=== PATIENT | male | born 1950 | race Caucasian/White ===

== ENCOUNTER 2021-04-28 14:23 | Outpatient (REF) | payer MEDICARE, SELFPAY ==
--- NOTE | ~2021-04-28 | US_ITS ---
EXAMINATION: US SOFT TISSUE HEAD/NECK CLINICAL INFORMATION: Dentofacial anomaly, unspecified. COMPARISON: None TECHNIQUE: Linear transducer grayscale and color Doppler examination of the right cheek bone just under eye. FINDINGS: Imaging to the right cheek bone destruction in the eyes reveals a cystic lesion with internal echoes, nonvascular measuring 0.80 x 0.4 x 0.8 cm. No additional lesions seen. US/US soft tiss head and/or neck IMPRESSION: Cystic appearing lesion deep within the soft tissues under the right cheek likely inclusion or sebaceous cyst
== END 2021-04-28 14:24 | disposition home or self-care (01) ==
LOC: HO.HMGCX 14:23
PROVIDERS: PCP Internal Medicine; Visit Provider Nurse Practitioner Family
DX: M26.9 Dentofacial anomaly, unspecified (principal); R22.0 Localized swelling, mass and lump, head
CPT/HCPCS: 76536

== ENCOUNTER 2022-04-27 06:00 | Outpatient (REF) | payer MEDICARE, SELFPAY ==
[2022-04-27 11:29] LABS: MANUAL DIFF FLAG NO
[2022-04-27 11:47] LABS: Basophils Percent Auto 0.6 % (0-2); Eosinophils Absolute Auto 0.2 X10*3/uL (0.0-0.4); Hematocrit 42.7 % (42.0-52.0); Hemoglobin 14.1 g/dl (14.0-18.0); Imm Gran Abs Auto 0.03 X10*3/uL (0.00-0.03); Imm Gran Pct Auto 0.6 % (0.0-0.4); Lymphocytes Absolute Auto 1.7 X10*3/uL (1.2-4.9); Lymphocytes Percent Auto 33.1 % (20-40); Mean Corpuscular Hemoglobin 29.5 pg (27.0-33.0); Mean Corpuscular Volume 89.3 fL (80.0-98.0); Mean Platelet Volume 11.9 fL (9.4-12.4); Monocytes Absolute Auto 0.5 X10*3/uL (0.1-1.2); Monocytes Percent Auto 10.4 % (2-11); Neutrophils Absolute Auto 2.6 x10*3/uL (2.0-8.3); Neutrophils Percent Auto 51.3 % (45-73); Platelet Count 126 X10*3/uL (160-400); Red Blood Count 4.78 X10*6/uL (4.60-5.80); Red Cell Distribution Width 12.8 % (11.0-16.0)
[2022-04-27 12:19] LABS: Thyroid Stimulating Hormone 1.67 uIU/mL (0.32-4.0); Vitamin D 25-OH Total 15.8 ng/mL (>30)
[2022-04-27 12:56] LABS: Alanine Aminotransferase 39 U/L (0-40); Albumin Level 3.9 g/dL (3.5-5.0); Alkaline Phosphatase 59 U/L (39-117); Anion Gap 9 (12-20); Aspartate Amino Transferase 22 U/L (5-37); Bilirubin Total 1.1 mg/dL (0.0-1.0); Blood Urea Nitrogen 16 mg/dL (9-16); Calcium 8.4 mg/dL (8.4-10.2); Carbon Dioxide 25 mmol/L (22-29); Chloride 109 mmol/L (96-108); Cholesterol 114 mg/dL; Estimated Glomerular Filt Rate > 60; Glucose Fasting 93 mg/dL (60-99); HDL Cholesterol 39 mg/dL; LDL Cholesterol Calculated 62 mg/dl; Potassium 4.2 mmol/L (3.3-5.1); Sodium 139 mmol/L (135-145); Total Protein 6.3 g/dL (6.5-8.0); Triglycerides 69 mg/dL
== END 2022-04-27 06:01 | disposition home or self-care (01) ==
LOC: HO.HMGCLDS 06:00
PROVIDERS: Visit Provider Internal Medicine
DX: I10 Essential (primary) hypertension (principal); I27.82 Chronic pulmonary embolism; D68.51 Activated protein C resistance; E78.00 Pure hypercholesterolemia, unspecified
CPT/HCPCS: 36415; 80053; 80061; 82306; 84443; 85025

== ENCOUNTER → 2022-07-16 14:43 | Outpatient (REF) | payer MEDICARE, SELFPAY ==
--- NOTE | 2022-07-16 14:46 | CA_ITS ---
Transthoracic Echocardiogram Patient (Last, First, Middle): Aurelio Sung, Gender: Male Date of : 1950 Age: 72 Procedure Date: 07/16/2022 Procedure Type: Transthoracic Echocardiogram Location: OP Height: 175.26 cm Weight: 92.99 kg BSA: 2.09 m2 Heart Rate: 73 bpm BP: 121 / 72 mmHg Brief Writer: SB Referring MD: Houston Osborne DO Symptoms: ESSEN. HTN Study Quality: Adequate ECG Rhythm: Sinus Conclusions: - Normal left ventricular size, thickness, systolic function, and wall motion. The visually estimated ejection fraction is between 60-65%. - Mildly increased right ventricular cavity size. There is normal right ventricular systolic function. - There is mild dilatation of the sinuses of Valsalva measuring 4.30 cm and mild dilatation of the ascending aorta measuring 4.10 cm. Findings Left Ventricle Normal left ventricular size, thickness, systolic function, and wall motion. The visually estimated ejection fraction is between 60-65%. There is no evidence of regional wall motion abnormalities. Abnormal diastolic function is noted. Spectral Doppler is indicative of a irreversible restrictive filling pattern. E/E prime ratio is between 8 and 15 consistent with indeterminate filling pressures. Low global longitudinal strain. Right Ventricle Mildly increased right ventricular cavity size. There is normal right ventricular systolic function. Atria The left atrium is normal in size. The right atrium is normal in size. Aortic Valve Normal aortic valve structure and function. There is no aortic valve stenosis. There is trace (trivial) aortic valve regurgitation. Mitral Valve Normal mitral valve structure and function. There is trace mitral valve regurgitation. There is no mitral valve stenosis. Pulmonic Valve Normal pulmonic valve structure and function. There is no pulmonic valve regurgitation. Tricuspid Valve Normal tricuspid valve structure and function. There is mild tricuspid valve regurgitation. Normal right atrial pressure. There is no evidence of pulmonary hypertension. Great Vessels There is mild dilatation of the sinuses of Valsalva measuring 4.30 cm and mild dilatation of the ascending aorta measuring 4.10 cm. The visualized portions of the pulmonary artery and branches are normal. Venous The inferior vena cava is normal in size and collapses greater than 50% with inspiration. Pericardium/Pleural There is no evidence of pericardial effusion. Measurements 2D Linear Measurements IVSd: 1.01 0.6-0.9/0.6-1.0 cm LVIDd: 4.55 3.9-5.3/4.2-5.9 cm LVIDd Index: 2.18 2.4-3.2/2.2-3.1 cm/m2 LVIDs: 3.17 2.0-3.6 cm LVPWd: 0.91 0.7-1.1 cm LA Diam: 3.70 2.7-3.8/3.0-4.0 cm LAIDs Index: 1.77 1.5-2.3 cm/m2 LV Mass: 183.58 67-162/88-224 g LV Mass Index: 87.84 43-95/49-115 g/m2 LVOT Diam: 2.40 3.0+(-)1.3 cm 2D Systolic Function EF 4C: 57.60 >55% EF 2C: 55.40 >55% EF BiP: 56.70 >55% Mitral Valve MV Pk E: 0.64 MV PK A: 0.65 MV Decel Time: 257.00 E/A: 1.00 E'Lateral: 5.87 E'Medial: 5.22 E/E' Med: 12.20 E/E' Lat: 10.90 PHT: 75.00 MVA PHT: 2.93 Decel [place]: 2.48 Aortic Valve AoV Pk Madan: 1.41 AoV Mn Madan: 1.07 AoV VTI: 0.28 AoV Pk Grad: 8.00 Aov Mn Grad: 5.00 CLARA Cont.VTI: 4.08 LVOT LVOT Pk Madan: 1.29 LVOT Mn Madan: 0.94 LVOT VTI: 0.25 LVOT Pk Grad: 7.00 LVOT Mn Grad: 4.00 LVOT Diam: 2.40 LVOT Area: 4.52 Diastolic Function MV Pk E: 0.64 MV Pk A: 0.65 E/A: 1.00 E'Medial: 5.22 E/E' Med: 12.20 E' Laterial: 5.87 E/E' Lat: 10.90 Right Ventricle TAPSE (mm): 16.30 TVS' Madan: 13.70 Tricuspid Valve TR Pk Madan: 2.39 TR Pk Grad: 23.00 RA Press: 3.00 RVSP: 26.00 Great Vessels Aorta Sinus of Valsalva: 4.30 2.0-3.5 cm Ao Asc: 4.10 2.1-3.4 cm Pulmonary Veins Pulm Vein S/D 2.30 Pulmonary Valve PV Pk Madan: 1.06 Peak PV Grad: 4.00 Updated in Other Vendor System with Status of Final Kyree Walker MD electronically signed on 07/18/2022 9:16:44 PM with status of Final
== END ==
LOC: HO.CARD 14:43
PROVIDERS: PCP Internal Medicine; Visit Provider Internal Medicine
DX: I10 Essential (primary) hypertension (principal); D68.51 Activated protein C resistance; E66.09 Other obesity due to excess calories; E78.00 Pure hypercholesterolemia, unspecified
CPT/HCPCS: 93306

== ENCOUNTER 2023-07-04 06:11 | Outpatient (REF) | payer MEDICARE, SELFPAY ==
[2023-07-04 11:31] LABS: MANUAL DIFF FLAG NO
[2023-07-04 11:35] LABS: Basophils Absolute Auto 0.1 X10*3/uL (0.0-0.2); Basophils Percent Auto 0.8 % (0-2); Eosinophils Absolute Auto 0.2 X10*3/uL (0.0-0.4); Eosinophils Percent Auto 3.6 % (0-4); Hematocrit 42.8 % (42.0-52.0); Hemoglobin 14.4 g/dl (14.0-18.0); Imm Gran Abs Auto 0.02 X10*3/uL (0.00-0.03); Imm Gran Pct Auto 0.3 % (0.0-0.4); Lymphocytes Absolute Auto 1.9 X10*3/uL (1.2-4.9); Mean Corpuscular HGB Conc 33.6 g/dl (31.0-36.0); Mean Corpuscular Hemoglobin 30.4 pg (27.0-33.0); Mean Corpuscular Volume 90.3 fL (80.0-98.0); Mean Platelet Volume 12.1 fL (9.4-12.4); Monocytes Absolute Auto 0.7 X10*3/uL (0.1-1.2); Monocytes Percent Auto 10.6 % (2-11); Neutrophils Absolute Auto 3.5 x10*3/uL (2.0-8.3); Neutrophils Percent Auto 54.7 % (45-73); Platelet Count 124 X10*3/uL (160-400); Red Blood Count 4.74 X10*6/uL (4.60-5.80); Red Cell Distribution Width 12.3 % (11.0-16.0); White Blood Count 6.4 X10*3/uL (4.8-10.8)
[2023-07-04 12:10] LABS: Alanine Aminotransferase 28 U/L (0-40); Albumin Level 3.8 g/dL (3.5-5.0); Alkaline Phosphatase 60 U/L (39-117); Anion Gap 9 (12-20); Aspartate Amino Transferase 18 U/L (5-37); Bilirubin Total 1.2 mg/dL (0.0-1.0); Blood Urea Nitrogen 13 mg/dL (9-16); Calcium 8.9 mg/dL (8.4-10.2); Carbon Dioxide 27 mmol/L (22-29); Chloride 109 mmol/L (96-108); Cholesterol 97 mg/dL (<200); Estimated Glomerular Filt Rate > 60; Glucose Fasting 92 mg/dL (60-99); HDL Cholesterol 44 mg/dL (>40); LDL Cholesterol Calculated 46 mg/dL (<100); Potassium 4.2 mmol/L (3.3-5.1); Sodium 141 mmol/L (135-145); Total Protein 6.5 g/dL (6.5-8.0); Triglycerides 39 mg/dL (<150)
[2023-07-04 12:30] LABS: Thyroid Stimulating Hormone 1.95 uIU/mL (0.32-4.0); Vitamin D 25-OH Total 32.8 ng/mL (>30)
== END 2023-07-04 06:12 | disposition home or self-care (01) ==
LOC: HO.HMGCLDS 06:11
PROVIDERS: PCP Internal Medicine; Visit Provider Internal Medicine
DX: I10 Essential (primary) hypertension (principal); D68.51 Activated protein C resistance; E78.00 Pure hypercholesterolemia, unspecified; E55.9 Vitamin D deficiency, unspecified; E66.09 Other obesity due to excess calories
CPT/HCPCS: 36415; 80053; 80061; 82306; 84443; 85025

== ENCOUNTER 2023-10-18 08:08 | Outpatient (AMB) | payer MEDICARE, SELFPAY ==
--- NOTE | 2023-10-18 08:29 | MHC.OFFVIS ---
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 He states that for the last couple of years he has been feeling short of breath activity. Activities that are normally easy for him like raking leaves, activities in the long extra are harder. He is getting short of breath and fatigue as well. However, no clear-cut angina. He has brought under get a chest CT scan from 2012 that describes extensive left coronary artery calcification. He he has been on statins for many years. There is a history of factor 5 Leiden and he states that he has had DVT as well as PE in the past. Hence he is on long-term anticoagulation with warfarin. [facility] Medical History (Updated 10/18/23 @ 08:56 by Mundo Rick MD) Factor V Leiden Pulmonary embolism DVT (deep venous thrombosis) Atherosclerotic cardiovascular disease Surgical History (Updated 10/18/23 @ 08:38 by Susanna Zhou) Hx of cholecystectomy Family History (Updated 10/18/23 @ 08:38 by Susanna Zhou) Mother No problems noted. Father No problems noted. Social History (Updated 10/18/23 @ 08:38 by Susanna Zhou) Alcohol intake: current Alcohol intake frequency: holidays/special occasions only Patient Tobacco Use Status: Former Tobacco user Quit Date: 42 years ago Review of Systems Const Denies chills, Denies daytime sleepiness, Denies fatigue, Denies fever(s), Denies frequent falls, Denies night sweats, Denies snoring, Denies weakness, Denies weight gain and Denies weight loss Eyes Denies loss of vision ENT Denies dizziness and Denies hearing loss Card Denies chest pain, Denies chest pain with activity, Denies syncope, Denies rapid heart rate, Denies edema, Denies claudication, Denies leg edema, Denies lightheadedness, Denies palpitations, Denies dyspnea, Reports dyspnea on exertion and Denies orthopnea Resp Denies cough, Denies excessive phlegm production, Denies dyspnea, Reports dyspnea on exertion, Denies snoring and Denies wheezing GI Denies abdominal pain, Denies hematochezia, Denies change in bowel habits, Denies change in stool character, Denies heartburn, Denies nausea and Denies vomiting Denies hematuria, Denies dysuria and Denies urinary frequency Musc Denies arthralgias, Denies muscle weakness, Denies numbness and Denies tingling Skin/Breast Denies nail changes and Denies rash Neuro Denies Abnormal speech present, Denies dizziness, Denies syncope, Denies frequent falls, Denies loss of vision, Denies memory loss, Denies numbness, Denies tingling and Denies weakness Psych Denies depression and Denies memory loss Endo Denies fatigue and Denies palpitations Aller/Immun Denies wheezing Physical Exam Vital Signs: Last Vital Signs Pulse 73 10/18/23 08:30 BP 136/80 10/18/23 08:30 BMI result Body Mass Index 31.3 Const General: comfortable and no acute distress Orientation/consciousness: patient oriented x3 HEENT Other: Unremarkable Head: Yes normal to inspection Neck Neck: Yes normal visual inspection Chest Chest palpation & inspection: normal inspection of the chest Resp Auscultation: clear to auscultation bilaterally Cardio Palpation: normal PMI Heart sounds: S1 normal heart sound present, S2 normal heart sound present, no gallops, no murmurs and no rubs GI Palpation (GI): Soft to palpation Back/Spine/Pelvis Other: unremarkable Skin General skin exam: no rashes or lesions noted Neuro General: patient oriented x3 Speech: No Abnormal speech present Extrem General: Yes normal to inspection Psych Mental Status: mental status grossly normal Office Procedures EKG Details: EKG with sinus rhythm at 73/Min; right bundle-branch block pattern. 10000-[id number], Complete Assessment & Plan Assessment & Plan (1) Shortness of breath: Code(s): R06.02 - Shortness of breath (2) Atherosclerotic cardiovascular disease: Code(s): I25.10 - Atherosclerotic heart disease of [place] coronary artery without angina pectoris Plan Per chest CT scan from 2013-extensive left coronary artery calcification. With regard to shortness of breath, need assessment for obstructive CAD. We discussed about this today. Advised to cut back on physical activity for now. Will start with an echocardiogram and stress myocardial perfusion imaging study. Based on the findings, may need a diagnostic catheterization. We discussed about that as well. Patient understands. Follow-up after testing. All questions answered. Otherwise, recommend continuing statins based on the CT findings. Orders: Orders CA echo transthoracic complete Today I25.10 - Atherosclerotic heart disease of [place] coronary artery without angina pectoris, R06.02 - Shortness of breath NM cardiolite stress test Today R06.02 - Shortness of breath, R07.2 - Precordial pain CA stress test Today R06.02 - Shortness of breath, R07.2 - Precordial pain Coding Level of Care Code New Pt Level 4 (24935) Diagnoses Shortness of breath R06.02 Atherosclerotic cardiovascular disease I25.10 CPT Codes EKG - CPT: 30063-[id number], Complete ([id number])
[2023-10-18 08:30] VITALS: BP 136/80; PULSE 73; BMI 31.3
== END 2023-10-18 08:57 | disposition home or self-care (01) ==
PROVIDERS: PCP Internal Medicine; Visit Provider Internal Medicine
DX: R06.02 Shortness of breath (principal); I25.10 Atherosclerotic heart disease of native coronary artery without angina pectoris
CPT/HCPCS: 93010; 99204

== ENCOUNTER → 2023-10-18 08:08 | Outpatient (BNVA) | payer MEDICARE, SELFPAY | PROVIDERS: PCP Internal Medicine; Visit Provider Internal Medicine | DX: I25.10 Atherosclerotic heart disease of native coronary artery without angina pectoris (principal); R06.02 Shortness of breath | CPT/HCPCS: 93005; 99202 ==

== ENCOUNTER → 2023-12-06 07:44 | Outpatient (REF) | payer MEDICARE, SELFPAY ==
--- NOTE | ~2023-12-06 | NM_ITS ---
EXERCISE MYOCARDIAL PERFUSION STUDY INDICATION: Shortness of breath, assess for coronary disease, ischemia TECHNIQUE: The patient was brought in for an exercise perfusion study on 12/06/2023. Patient performed exercise as per Dg protocol and was injected 30 mCi of sestamibi once target heart rate was achieved. Images were obtained using the SPECT gamma camera interlaced with the gating device. Images were obtained in supine position. Resting perfusion study was performed on 12/07/2023. Patient was administered 30 mCi of sestamibi intravenously at rest. Images were then obtained in supine position. Images were processed with the software and compared side to side in short axis, horizontal long axis and vertical long axis views. Total DLP 104mGy-cm. FINDINGS: Raw images were reviewed. The stress perfusion study showed mildly diminished tracer uptake in the basal part of inferior wall. There is improvement with CT attenuation correction suggestive of diaphragmatic attenuation artifact. The gated study shows normal LV systolic function with calculated LVEF of 65%. LV cavity is normal in size. The gated study shows normal wall thickening and contraction of segments. Resting study shows no significant perfusion abnormality. Gating at rest reveals normal wall motion with ejection fraction at 63%. The findings are consistent with mild reversible basal inferior defect suspected to be from diaphragmatic attenuation artifact. NM/NM cardiolite stress test IMPRESSION: 1. Myocardial perfusion imaging study shows probably normal myocardial perfusion. 2. Gated LVEF is 65% during stress and 63% during rest. 3. Transient ischemic dilatation not present. EKG component of the test reported separately.
--- NOTE | 2023-12-06 07:46 | CA_ITS ---
Acquisition Time: 2023-12-06 08:55:42 Total Exercise Time: 00:05:30 Test Indications: Dyspnea CAD Medications: ATORVASTATIN LOSARTAN WARFARIN VIT D Protocol: YOVANNY Max HR: 129 BPM 88% of Pred: 146 BPM Max BP: 172/078 mmHG Max Work Load: 6.0 METS Exercise stress test exercise 5 min 30 sec of Yovanny protocol (stage 2 reduced speed of 2.1mph) 86%, without chest discomfort, with mild to moderate SOB, with isolated PVC, and atrial tach, with normotensive response to exercise, without EKG changes. Breathing returned to baseline Nuclear images pending. Test reviewed with Dr. Hitchcock Referred By: Mundo Rick Overread By: Laura Hernandez
--- NOTE | 2023-12-06 07:46 | CA_ITS ---
Transthoracic Echocardiogram Patient (Last, First, Middle): Aurelio Sung, Gender: Male Date of : 1950 Age: 73 Procedure Date: 12/06/2023 Procedure Type: Transthoracic Echocardiogram Location: OP Height: 175.26 cm Weight: 92.99 kg BSA: 2.09 m2 Heart Rate: bpm BP: 120 / 74 mmHg Therapy Technician: ALEXANDR Referring MD: Mundo Rick MD Pet Care Associate: Parker Hitchcock MD Symptoms: I25.10 - Atherosclerotic heart disease of [place] coronary artery without... Study Quality: Adequate ECG Rhythm: Sinus Conclusions: - 1. Normal LV ejection fraction 60-65% with grade 1 diastolic dysfunction 2. Mildly dilated left atrium 3. Trace to mild aortic regurgitation 4. Mildly dilated ascending aorta at 4.1 cm 5. No gross pericardial effusion Findings Left Ventricle Normal left ventricular size, thickness, and systolic function. The visually estimated ejection fraction is between 60-65%. Spectral Doppler is indicative of an impaired relaxation filling pattern. E/E prime ratio is <8, consistent with normal filling pressures. possible basal inferior hypokinesis. Right Ventricle Normal right ventricular cavity size and systolic function. Atria The left atrium is mildly dilated. There is no evidence of interatrial shunt. The right atrium is normal in size. Aortic Valve Normal aortic valve structure and function. There is no aortic valve stenosis. There is mild aortic valve regurgitation. Mitral Valve Normal mitral valve structure and function. There is trace mitral valve regurgitation. There is no mitral valve stenosis. Pulmonic Valve The pulmonic valve is likely normal. There is trace pulmonic valve regurgitation. Tricuspid Valve Normal tricuspid valve structure. Tricuspid regurgitation envelope is inadequate for calculation of right ventricular systolic pressure. Normal right atrial pressure. Great Vessels The pulmonary artery was not well visualized. There is mild dilatation of the ascending aorta measuring 4.10 cm. Venous The inferior vena cava is normal in size and collapses greater than 50% with inspiration. Pericardium/Pleural There is no evidence of pericardial effusion. Prior Study Comparison Changes noted compared to prior study dated: 07/16/2022. trace to mild aortic regurgitation is noted. Delayed reporting due to technical issues Measurements 2D Linear Measurements IVSd: 1.06 0.6-0.9/0.6-1.0 cm LVIDd: 4.93 3.9-5.3/4.2-5.9 cm LVIDd Index: 2.36 2.4-3.2/2.2-3.1 cm/m2 LVIDs: 3.28 2.0-3.6 cm LVPWd: 0.94 0.7-1.1 cm LA Diam: 3.50 2.7-3.8/3.0-4.0 cm LAIDs Index: 1.67 1.5-2.3 cm/m2 LV Mass: 221.06 67-162/88-224 g LV Mass Index: 105.77 43-95/49-115 g/m2 LVOT Diam: 2.40 3.0+(-)1.3 cm 2D Systolic Function EF 4C: 64.20 >55% EF 2C: 60.40 >55% EF BiP: 62.50 >55% Mitral Valve MV Pk E: 0.54 MV PK A: 0.63 MV Decel Time: 250.00 E/A: 0.90 E'Lateral: 8.27 E'Medial: 5.87 E/E' Med: 9.20 E/E' Lat: 6.50 PHT: 73.00 MVA PHT: 3.01 Decel [place]: 2.16 Aortic Valve AoV Pk Madan: 1.45 AoV Mn Madan: 1.03 AoV VTI: 0.37 AoV Pk Grad: 8.00 Aov Mn Grad: 5.00 CLARA Cont.VTI: 3.62 LVOT LVOT Pk Madan: 1.44 LVOT Mn Madan: 0.85 LVOT VTI: 0.29 LVOT Pk Grad: 8.00 LVOT Mn Grad: 4.00 LVOT Diam: 2.40 LVOT Area: 4.52 Diastolic Function MV Pk E: 0.54 MV Pk A: 0.63 E/A: 0.90 E'Medial: 5.87 E/E' Med: 9.20 E' Laterial: 8.27 E/E' Lat: 6.50 Right Ventricle TAPSE (mm): 28.70 TVS' Madan: 15.30 Tricuspid Valve TR Pk Madan: 2.57 TR Pk Grad: 26.00 Great Vessels Aorta Sinus of Valsalva: 4.33 2.0-3.5 cm Ao Asc: 4.10 2.1-3.4 cm Updated in Other Vendor System with Status of Final Parker Coretta MD electronically signed on 12/08/2023 3:00:10 PM with status of Final
== END ==
LOC: HO.CARD 07:44
PROVIDERS: PCP Internal Medicine; Visit Provider Internal Medicine
DX: R07.2 Precordial pain (principal); I25.10 Atherosclerotic heart disease of native coronary artery without angina pectoris; R06.02 Shortness of breath
CPT/HCPCS: 78452; 93017; 93306; A9500

== ENCOUNTER → 2023-12-06 09:02 | Outpatient (BNV) | payer MEDICARE, SELFPAY | PROVIDERS: PCP Internal Medicine; Visit Provider Internal Medicine | DX: I35.1 Nonrheumatic aortic (valve) insufficiency (principal) | CPT/HCPCS: 78452; 93016; 93018; 93306 ==

== ENCOUNTER 2024-01-09 14:47 | Outpatient (REF) | payer MEDICARE, SELFPAY ==
[2024-01-09 16:14] LABS: MANUAL DIFF FLAG NO
[2024-01-09 16:18] LABS: Basophils Percent Auto 0.8 % (0-2); Eosinophils Absolute Auto 0.2 X10*3/uL (0.0-0.4); Eosinophils Percent Auto 2.8 % (0-4); Hematocrit 42.1 % (42.0-52.0); Hemoglobin 14.6 g/dl (14.0-18.0); Imm Gran Abs Auto 0.02 X10*3/uL (0.00-0.03); Imm Gran Pct Auto 0.4 % (0.0-0.4); Lymphocytes Absolute Auto 2.2 X10*3/uL (1.2-4.9); Lymphocytes Percent Auto 41.3 % (20-40); Mean Corpuscular HGB Conc 34.7 g/dl (31.0-36.0); Mean Corpuscular Hemoglobin 30.9 pg (27.0-33.0); Mean Platelet Volume 12.4 fL (9.4-12.4); Monocytes Absolute Auto 0.6 X10*3/uL (0.1-1.2); Monocytes Percent Auto 10.3 % (2-11); Neutrophils Absolute Auto 2.4 x10*3/uL (2.0-8.3); Neutrophils Percent Auto 44.4 % (45-73); Platelet Count 123 X10*3/uL (160-400); Red Blood Count 4.73 X10*6/uL (4.60-5.80); Red Cell Distribution Width 12.3 % (11.0-16.0); White Blood Count 5.3 X10*3/uL (4.8-10.8)
[2024-01-09 16:30] LABS: Alanine Aminotransferase 32 U/L (0-40); Albumin Level 4.1 g/dL (3.5-5.0); Alkaline Phosphatase 60 U/L (39-117); Anion Gap 8 (12-20); Aspartate Amino Transferase 24 U/L (5-37); Bilirubin Total 0.8 mg/dL (0.0-1.0); Blood Urea Nitrogen 14 mg/dL (9-16); Calcium 8.9 mg/dL (8.4-10.2); Carbon Dioxide 28 mmol/L (22-29); Chloride 109 mmol/L (96-108); Estimated Glomerular Filt Rate > 60; Glucose Random 93 mg/dL (60-115); Potassium 4.1 mmol/L (3.3-5.1); Sodium 141 mmol/L (135-145); Total Protein 6.8 g/dL (6.5-8.0)
== END 2024-01-09 14:48 | disposition home or self-care (01) ==
LOC: HO.HMGCLDS 14:47
PROVIDERS: PCP Internal Medicine; Visit Provider Internal Medicine
DX: I10 Essential (primary) hypertension (principal)
CPT/HCPCS: 36415; 80053; 85025

== ENCOUNTER 2024-01-12 14:04 | Outpatient (AMB) | payer MEDICARE, SELFPAY ==
--- NOTE | 2024-01-12 14:04 | A.OFFVIS_ITS ---
Intake Vital Signs 01/12/24 14:05 Height 5 ft 9 in Weight 207 lb 3.752 oz BMI 30.6 BP 140/76 H Blood Pressure Location Lt brachial Position Sitting Pulse 73 Intake Visit Reasons: Follow up post echo and nuclear stress Intake Note: follow up testing [facility] Marker Required: No Accompanied by: Self / Same As Patient Allergies lisinopril [Prinivil] Allergy (Unknown, Verified 01/12/24 14:05) itching Medication List - Last Reconciled 01/12/24 by Mundo Rick MD atorvastatin 20 mg PO BEDTIME cholecalciferol (vitamin D3) (Vitamin D3) 50 mcg PO DAILY losartan 50 mg PO DAILY warfarin 7.5 mg PO DAILY HPI HPI Comments History of Present Illness Details Aurelio returns for follow-up. He was recently seen in consultation regarding shortness of breath. He felt that he was getting more short of breath with activities like raking leaves extra over the last few months. However, he does not have any angina. Around 10 years ago, he had a CT scan of chest in 2012. That showed extensive left coronary artery calcification. He has been on statins for many years. There is a history of factor 5 Leiden and he states that he has had DVT as well as PE in the past. Hence he is on long-term anticoagulation with warfarin. Since last seen, he has had an echocardiogram and stress test. Otherwise, he states he is just about the same as before. [facility] Medical History (Updated 10/18/23 @ 08:56 by Mundo Rick MD) Factor V Leiden Pulmonary embolism DVT (deep venous thrombosis) Atherosclerotic cardiovascular disease Surgical History Hx of cholecystectomy Family History Mother No problems noted. Father No problems noted. Social History Alcohol intake: current Alcohol intake frequency: holidays/special occasions only Patient Tobacco Use Status: Former Tobacco user Quit Date: 42 years ago Review of Systems Const Denies weakness ENT Denies dizziness Card Denies chest pain, Denies chest pain with activity, Denies syncope, Denies rapid heart rate, Denies pedal edema, Denies edema, Denies leg edema, Denies lightheadedness, Denies palpitations, Denies dyspnea, Denies dyspnea on exertion and Denies orthopnea Resp Denies cough, Denies dyspnea and Denies dyspnea on exertion GI Denies hematochezia and Denies change in stool character Musc Denies abnormal gait, Denies muscle cramps, Denies muscle weakness, Denies numbness, Denies radiating pain into limb and Denies tingling Neuro Denies abnormal gait, Denies dizziness, Denies syncope, Denies numbness, Denies tingling and Denies weakness Endo Denies palpitations Physical Exam Vital Signs: Last Vital Signs Pulse 73 01/12/24 14:05 BP 140/76 H 01/12/24 14:05 BMI result Body Mass Index 30.6 Const General: comfortable and no acute distress Orientation/consciousness: patient oriented x3 HEENT Other: Unremarkable Head: Yes normal to inspection Neck Neck: Yes normal visual inspection Chest Chest palpation & inspection: normal inspection of the chest Resp Auscultation: clear to auscultation bilaterally Cardio Palpation: normal PMI Heart sounds: S1 normal heart sound present, S2 normal heart sound present, no gallops, no murmurs and no rubs GI Palpation (GI): Soft to palpation Back/Spine/Pelvis Other: unremarkable Skin General skin exam: no rashes or lesions noted Neuro General: patient oriented x3 Extrem General: Yes normal to inspection Psych Mental Status: mental status grossly normal Assessment & Plan Assessment & Plan (1) Atherosclerotic cardiovascular disease: Code(s): I25.10 - Atherosclerotic heart disease of [place] coronary artery without angina pectoris (2) Shortness of breath: Code(s): R06.02 - Shortness of breath Plan Per chest CT scan from 2012-extensive left coronary artery calcification. Echocardiogram with LVEF of 60-65%. Mild diastolic dysfunction. Reported have possible basal inferior hypokinesis but upon my review, not thought to be definitive. Ascending aortic size 4.1 cm. Myocardial perfusion imaging study shows probably normal perfusion. Overall, based on the above, he does have coronary disease but no evidence of obstructive CAD. Clinically he does not have any angina but shortness of breath with some physical activities. We went over the findings in great detail. We discussed about further options including just continuing medical therapy as well as proceeding with a diagnostic catheterization. After reviewing all the possibilities, we decided that we will just continue the current medications for now for the next few months. As spring is starting, he will re-attempt some out of physical activities and see how he feels. If about the same or he gets worse, he will contact us. In that case, we will readdress regarding appropriateness of cardiac catheterization. He agrees with this plan. Any other concerns, again he will contact us. With regard to the ascending aortic size, he will need periodic echocardiograms, probably next in a year or so. May remain on statins. Blood pressure borderline high today but at home he states it is much lower and in the normal range. Follow-up in 6 months. He will keep us posted with any concerns. Coding Level of Care Code Est Pt Level 4 (08429) Diagnoses Atherosclerotic cardiovascular disease I25.10 Shortness of breath R06.02
[2024-01-12 14:05] VITALS: BP 140/76; PULSE 73; BMI 30.6
== END 2024-01-12 14:27 | disposition home or self-care (01) ==
PROVIDERS: PCP Internal Medicine; Visit Provider Internal Medicine
DX: I25.10 Atherosclerotic heart disease of native coronary artery without angina pectoris (principal); R06.02 Shortness of breath
CPT/HCPCS: 99214

== ENCOUNTER → 2024-01-12 14:04 | Outpatient (BNVA) | payer MEDICARE, SELFPAY | PROVIDERS: PCP Internal Medicine; Visit Provider Internal Medicine | DX: I25.10 Atherosclerotic heart disease of native coronary artery without angina pectoris (principal); R06.02 Shortness of breath | CPT/HCPCS: 99212 ==

== ENCOUNTER 2024-04-16 10:02 | Outpatient (AMB) | payer MEDICARE, SELFPAY ==
[2024-04-16 10:36] VITALS: PULSE 69; O2SAT 95; BMI 30.3
--- NOTE | 2024-04-16 10:36 | A.OFFVIS_ITS ---
Vital Signs 04/16/24 10:36 Height 5 ft 9 in Weight 205 lb BMI 30.3 Pulse 69 Pulse Source Pulse Oximeter Pulse Oximetry (%) 95 Oxygen Delivery Method Room Air Intake Visit Reasons: MAK Computer Language Coder Required: No Allergies lisinopril [Prinivil] Allergy (Unknown, Verified 04/16/24 10:37) itching HPI Comments Details: The patient is here for pulmonary evaluation. The patient is a 74-year-old gentleman with a known history of pulmonary emboli back more than 12 years ago on chronic anticoagulation presenting with worsening dyspnea symptoms. The patient states that he was chopping wood and started developing significant shortness of breath and was panting. Moderate severity. He went to his primary care who referred him to a emissions engineer. He did have a cardiac stress test wh ich was completely normal. The patient also had a echocardiogram demonstrating a slightly dilated ascending aorta 4.1 cm along with mild diastolic dysfunction. No clear explanation for the patient's symptoms. Therefore he was referred to Pulmonary. The patient did have a rescue inhaler in the past many years ago but he never used it. Has not been complaining of any coughing wheezing or chest tightness. During the visit we did go for brief walking oximetry we actually went up 4 flights of stairs. Once we reached the 4th flight of stairs he started developing some shortness breath. Heart rate increased about 118. Also to note his oxygen prior to the exercise was 91% we worked on deep breathing exercises and did get better. Otherwise patient is doing well. [facility] Medical History (Updated 04/16/24 @ 22:22 by Keith Maldonado MD) History of pulmonary embolism Factor V Leiden Pulmonary embolism DVT (deep venous thrombosis) Atherosclerotic cardiovascular disease Surgical History Hx of cholecystectomy Family History Mother No problems noted. Father No problems noted. Social History Alcohol intake: current Alcohol intake frequency: holidays/special occasions only Patient Tobacco Use Status: Former Tobacco user Review of Systems Const Denies fever(s) and Denies weight loss Eyes Reports no additional complaints ENT Reports no additional complaints Card Denies chest pain and Reports dyspnea on exertion Resp Reports dyspnea on exertion and Denies wheezing GI Reports no additional complaints Musc Reports myalgias Skin/Breast Denies rash Shen/Lymph Denies easy bleeding and Denies lymphadenopathy Aller/Immun Denies wheezing Physical Exam Vital Signs: Last Vital Signs Pulse 69 04/16/24 10:36 Pulse Ox 95 04/16/24 10:36 Oxygen Delivery Method Room Air 04/16/24 10:36 BMI result Body Mass Index 30.3 Const General: comfortable Orientation/consciousness: patient oriented x3 HEENT Other: Unremarkable Head: Yes normal to inspection Neck Neck: Yes normal visual inspection Chest Chest palpation & inspection: normal inspection of the chest Resp Effort & Inspection: normal respiratory effort Auscultation: clear to auscultation bilaterally Cardio Heart sounds: S1 normal heart sound present, S2 normal heart sound present and no murmurs GI Palpation (GI): Soft to palpation Back/Spine/Pelvis Other: unremarkable Skin General skin exam: no rashes or lesions noted Neuro General: patient oriented x3 Extrem General: Yes normal to inspection Psych Mental Status: mental status grossly normal Assessment & Plan Assessment & Plan (1) Shortness of breath: Code(s): R06.02 - Shortness of breath Category: Medical (2) History of pulmonary embolism: Code(s): Z86.711 - Personal history of pulmonary embolism Category: Medical Plan CXR PFTs continue life long anticoagulation no need for inhalers at this time should avoid strenuous exercise activity F/U 2-3 months Orders: Orders XR chest 2V Today R06.02 - Shortness of breath PFT pulmonary function test Today R06.02 - Shortness of breath Coding Level of Care Code New Pt Level 4 (68866) Diagnoses Shortness of breath R06.02 History of pulmonary embolism Z86.711 Time Spent (min) 37
== END 2024-04-16 11:09 | disposition home or self-care (01) ==
PROVIDERS: PCP Internal Medicine; Visit Provider Hospitalist
DX: R06.02 Shortness of breath (principal); Z86.711 Personal history of pulmonary embolism
CPT/HCPCS: 99204

== ENCOUNTER → 2024-04-16 10:02 | Outpatient (BNVA) | payer MEDICARE, SELFPAY | PROVIDERS: PCP Internal Medicine; Visit Provider Hospitalist | DX: R06.02 Shortness of breath (principal); Z86.711 Personal history of pulmonary embolism | CPT/HCPCS: 99202 ==

== ENCOUNTER 2024-07-19 09:20 | Outpatient (AMB) | payer MEDICARE, SELFPAY ==
--- NOTE | 2024-07-19 09:27 | MHC.OFFVIS ---
Vital Signs 07/19/24 09:28 Height 5 ft 9 in Weight 210 lb 5.136 oz BMI 31.1 BP 134/62 Blood Pressure Location Lt brachial Position Sitting Pulse 63 Pulse Source Monitor Intake Visit Reasons: 6 mth fu Dependency Program Director Required: No Accompanied by: Self / Same As Patient Allergies lisinopril [Prinivil] Allergy (Unknown, Verified 04/16/24 10:37) itching Medication List - Last Reconciled 07/19/24 by Mundo Rick MD atorvastatin 20 mg PO BEDTIME cholecalciferol (vitamin D3) (Vitamin D3) 50 mcg PO DAILY losartan 50 mg PO DAILY warfarin 7.5 mg PO DAILY HPI Comments Details: Aurelio returns for follow-up. Originally seen in consultation regarding shortness of breath. He felt that he was getting more short of breath with activities like raking leaves extra over the last few months. However, he does not have any angina. Around 10 years ago, he had a CT scan of chest in 2012. That showed extensive left coronary artery calcification. He has been on statins for many years. There is a history of factor 5 Leiden and he states that he has had DVT as well as PE in the past. Hence he is on long-term anticoagulation with warfarin. He states that he is feeling just about the same. He still has the same symptoms. [facility] Medical History (Updated 04/16/24 @ 22:22 by Keith Maldonado MD) History of pulmonary embolism Factor V Leiden Pulmonary embolism DVT (deep venous thrombosis) Atherosclerotic cardiovascular disease Surgical History Hx of cholecystectomy Family History Mother No problems noted. Father No problems noted. Social History Alcohol intake: current Alcohol intake frequency: holidays/special occasions only Patient Tobacco Use Status: Former Tobacco user Review of Systems Const Denies chills, Denies fatigue, Denies fever(s), Denies frequent falls, Denies weakness, Denies weight gain and Denies weight loss ENT Denies dizziness Card Denies chest pain, Denies leg edema, Denies lightheadedness, Denies palpitations, Denies dyspnea and Denies dyspnea on exertion Resp Denies cough, Denies dyspnea and Denies dyspnea on exertion GI Denies hematochezia Musc Denies abnormal gait, Denies muscle weakness, Denies numbness, Denies radiating pain into limb and Denies tingling Neuro Denies abnormal gait, Denies dizziness, Denies frequent falls, Denies numbness, Denies tingling and Denies weakness Endo Denies fatigue and Denies palpitations Physical Exam Vital Signs: Last Vital Signs Pulse 63 07/19/24 09:28 BP 134/62 07/19/24 09:28 BMI result Body Mass Index 31.1 Const General: comfortable and no acute distress Orientation/consciousness: patient oriented x3 HEENT Other: Unremarkable Head: Yes normal to inspection Neck Neck: Yes normal visual inspection Chest Chest palpation & inspection: normal inspection of the chest Resp Auscultation: clear to auscultation bilaterally Cardio Palpation: normal PMI Heart sounds: S1 normal heart sound present, S2 normal heart sound present, no gallops, no murmurs and no rubs GI Palpation (GI): Soft to palpation Back/Spine/Pelvis Other: unremarkable Skin General skin exam: no rashes or lesions noted Neuro General: patient oriented x3 Extrem General: Yes normal to inspection Psych Mental Status: mental status grossly normal Office Procedures EKG Details: EKG with underlying sinus rhythm at 63/Min; right bundle-branch block pattern; voltage criteria for LVH and can not exclude old inferior infarct. [id number], Complete Assessment & Plan Assessment & Plan (1) Atherosclerotic cardiovascular disease: Code(s): I25.10 - Atherosclerotic heart disease of [place] coronary artery without angina pectoris Category: Medical Plan Chest CT scan from 2013-extensive left coronary artery calcification. Echocardiogram with LVEF of 60-65%. Mild diastolic dysfunction. Reported have possible basal inferior hypokinesis. Ascending aortic size 4.1 cm. Myocardial perfusion imaging study shows probably normal perfusion. Clinically, still has some exertional shortness of breath. We discussed about a diagnostic catheterization and he is agreeable. Can schedule that in the near future. He will need Lovenox bridging. Based on the findings, we can plan further care. Orders: Orders Basic Metabolic Panel Today I25.10 - Atherosclerotic heart disease of [place] coronary artery without angina pectoris Prothrombin Time INR Today I25.10 - Atherosclerotic heart disease of [place] coronary artery without angina pectoris Cardiac Cath LT Diagnostic Today I25.10 - Atherosclerotic heart disease of [place] coronary artery without angina pectoris Complete Blood Count no Diff Today I25.10 - Atherosclerotic heart disease of [place] coronary artery without angina pectoris Medications: New enoxaparin (Lovenox) 100 mg subcut Q12H 20 mL 0RF 10 days Z86.711 - Personal history of pulmonary embolism Coding Level of Care Code Est Pt Level 4 (28239) Diagnoses Atherosclerotic cardiovascular disease I25.10 CPT Codes EKG - CPT: 29033-[id number], Complete ([id number])
[2024-07-19 09:28] VITALS: BP 134/62; PULSE 63; BMI 31.1
== END 2024-07-19 10:08 | disposition home or self-care (01) ==
PROVIDERS: PCP Internal Medicine; Visit Provider Internal Medicine
DX: I25.10 Atherosclerotic heart disease of native coronary artery without angina pectoris (principal)
CPT/HCPCS: 93010; 99214

== ENCOUNTER → 2024-07-19 09:20 | Outpatient (BNVA) | payer MEDICARE, SELFPAY | PROVIDERS: PCP Internal Medicine; Visit Provider Internal Medicine | DX: I45.10 Unspecified right bundle-branch block (principal); I25.10 Atherosclerotic heart disease of native coronary artery without angina pectoris; I10 Essential (primary) hypertension | CPT/HCPCS: 93005; 99212 ==

== ENCOUNTER 2024-09-07 09:47 | Outpatient (REF) | payer MEDICARE, SELFPAY ==
[2024-09-07 09:22] VITALS: PULSE 65; RESP 16; O2SAT 96
--- NOTE | 2024-09-07 09:54 | PFT_ITS ---
Indication: Dyspnea Spirometry [FEV1 to FVC 81% with an FEV1 of 2.7 L; FVC 3.33 L. No significant response to bronchodilators noted. Maximum voluntary ventilation 84% predicted] Lung Volumes [Total lung capacity 72% predicted; expiratory reserve volume 28% predicted] Diffusion Capacity [DLCO 98% predicted] Comparisons [none] Interpretation [No obstructive ventilatory defects. No significant response to bronchodilators noted. Normal maximum voluntary ventilation. However, the patient does have a restrictive ventilatory defect consistent with mild restrictive lung disease. Etiology is unclear although interstitial lung conditions should be considered. Diffusing capacity is within normal limits which is reassuring clinical correlation warranted] MTDD
== END 2024-09-07 09:48 | disposition home or self-care (01) ==
LOC: HO.RESP 09:47
PROVIDERS: PCP Internal Medicine; Visit Provider Hospitalist
DX: R06.02 Shortness of breath (principal)
CPT/HCPCS: 94010; 94640; 94727; 94729

== ENCOUNTER → 2024-09-07 09:54 | Outpatient (BNV) | payer MEDICARE, SELFPAY | PROVIDERS: PCP Internal Medicine; Visit Provider Hospitalist | DX: R06.02 Shortness of breath (principal) | CPT/HCPCS: 94060; 94727; 94729 ==

== ENCOUNTER 2024-09-28 12:49 | Outpatient (AMB) | payer MEDICARE, SELFPAY ==
[2024-09-28 12:54] VITALS: BP 122/72; PULSE 69; O2SAT 98; BMI 31.4
--- NOTE | 2024-09-28 12:54 | MHC.OFFVIS ---
Vital Signs 09/28/24 12:54 Height 5 ft 9 in Weight 212 lb 11.937 oz BMI 31.4 BP 122/72 Blood Pressure Location Lt brachial Position Sitting Pulse 69 Pulse Source Pulse Oximeter Pulse Oximetry (%) 98 Oxygen Delivery Method Room Air Intake Visit Reasons: Shortness of Breath/PFT Follow Up Supervisor Show Operations Required: No Allergies lisinopril [Prinivil] Allergy (Unknown, Verified 09/28/24 12:57) itching HPI Comments Details: The patient is here for pulmonary evaluation. The patient is a 74-year-old gentleman with a known history of pulmonary emboli back more than 12 years ago on chronic anticoagulation presenting with worsening dyspnea symptoms. The patient states that he was chopping wood and started developing significant shortness of breath and was panting. Moderate severity. He went to his primary care who referred him to a cloth hauler. He did have a cardiac stress test which was completely normal. The patient also had a echocardiogram demonstrating a slightly dilated ascending aorta 4.1 cm along with mild diastolic dysfunction. No clear explanation for the patient's symptoms. Therefore he was referred to Pulmonary. The patient did have a rescue inhaler in the past many years ago but he never used it. Has not been complaining of any coughing wheezing or chest tightness. During the visit we did go for brief walking oximetry we actually went up 4 flights of stairs. Once we reached the 4th flight of stairs he started developing some shortness breath. Heart rate increased about 118. Also to note his oxygen prior to the exercise was 91% we worked on deep breathing exercises and did get better. Otherwise patient is doing well. 09/28/2024 the patient is here for pulmonary follow-up visit. Overall the patient has been doing well. Still having some dyspnea on exertion [id number] severity. Also gets affected by dust specially if he is mowing the lawn. He did undergo pulmonary function studies which was personally by me. The patient does have have a mild restrictive ventilatory defect. No evidence of obstruction and normal diffusing capacity. He will need to have a chest x-ray. If indeed the x-ray is nondiagnostic were request a CT scan to try to assess why he has restrictive lung disease. Otherwise the patient does not need any inhalers at this time. Will follow-up in 6 months. If the patient has any issues she will call for further evaluation. [facility] Medical History (Updated 09/28/24 @ 13:09 by Keith Maldonado MD) Chronic restrictive lung disease History of pulmonary embolism Factor V Leiden Pulmonary embolism DVT (deep venous thrombosis) Atherosclerotic cardiovascular disease Surgical History Hx of cholecystectomy Family History Mother No problems noted. Father No problems noted. Social History Alcohol intake: current Alcohol intake frequency: holidays/special occasions only Patient Tobacco Use Status: Former Tobacco user Review of Systems Const Denies fever(s) and Denies weight loss Eyes Reports no additional complaints ENT Reports no additional complaints Card Denies chest pain and Reports dyspnea on exertion Resp Reports dyspnea on exertion and Denies wheezing GI Reports no additional complaints Musc Reports myalgias Skin/Breast Denies rash Shen/Lymph Denies easy bleeding and Denies lymphadenopathy Aller/Immun Denies wheezing Physical Exam Vital Signs: Last Vital Signs Pulse 69 09/28/24 12:54 BP 122/72 09/28/24 12:54 Pulse Ox 98 09/28/24 12:54 Oxygen Delivery Method Room Air 09/28/24 12:54 BMI result Body Mass Index 31.4 Const General: comfortable Orientation/consciousness: patient oriented x3 HEENT Other: Unremarkable Head: Yes normal to inspection Neck Neck: Yes normal visual inspection Chest Chest palpation & inspection: normal inspection of the chest Resp Effort & Inspection: normal respiratory effort Auscultation: clear to auscultation bilaterally Cardio Heart sounds: S1 normal heart sound present, S2 normal heart sound present and no murmurs GI Palpation (GI): Soft to palpation Back/Spine/Pelvis Other: unremarkable Skin General skin exam: no rashes or lesions noted Neuro General: patient oriented x3 Extrem General: Yes normal to inspection Psych Mental Status: mental status grossly normal Assessment & Plan Assessment & Plan (1) Shortness of breath: Code(s): R06.02 - Shortness of breath Category: Medical (2) History of pulmonary embolism: Code(s): Z86.711 - Personal history of pulmonary embolism Category: Medical (3) Chronic restrictive lung disease: Code(s): J98.4 - Other disorders of lung Category: Medical Plan CXR, if non diagnostic then CT chest PFTs with restrictive lung disease continue life long anticoagulation no need for inhalers at this time F/U 4-6 months Orders: Orders XR chest 2V 09/28/24 J98.4 - Other disorders of lung Coding Level of Care Code Est Pt Level 4 (79602) Diagnoses Shortness of breath R06.02 History of pulmonary embolism Z86.711 Chronic restrictive lung disease J98.4 Time Spent (min) 16
== END 2024-09-28 13:16 | disposition home or self-care (01) ==
PROVIDERS: PCP Internal Medicine; Visit Provider Hospitalist
DX: R06.02 Shortness of breath (principal); Z86.711 Personal history of pulmonary embolism; J98.4 Other disorders of lung
CPT/HCPCS: 99214

== ENCOUNTER → 2024-09-28 12:49 | Outpatient (BNVA) | payer MEDICARE, SELFPAY | PROVIDERS: PCP Internal Medicine; Visit Provider Hospitalist | DX: R06.02 Shortness of breath (principal); J98.4 Other disorders of lung; Z86.711 Personal history of pulmonary embolism | CPT/HCPCS: 99212 ==

== ENCOUNTER 2024-10-01 09:28 | Outpatient (REF) | payer MEDICARE, SELFPAY ==
--- NOTE | ~2024-10-01 | XR_ITS ---
EXAMINATION: XR CHEST CLINICAL INFORMATION: J98.4 - Other disorders of lung. COMPARISON: None available. TECHNIQUE: 2 views of the chest were obtained. FINDINGS: The cardiac, hilar, and mediastinal contours are normal. Aorta is mildly tortuous and mildly calcified. Lungs demonstrate patchy opacity right lower lobe distribution, possibly suggesting a subtle pneumonia. Left lung is clear. There is no pneumothorax or pleural effusion. There is no focal osseous or soft tissue abnormality. There are mild to moderate spinal degenerative changes. XR/XR chest 2V IMPRESSION: 1. Subtle opacity right lower lobe distribution suggestive of a subtle pneumonia in the appropriate clinical context. 2. The left lung is clear. Electronically signed by: Kj Hernandez MD 10/16/2024 10:46 AM [facility]
== END 2024-10-01 09:29 | disposition home or self-care (01) ==
LOC: HO.XRAY 09:28
PROVIDERS: PCP Internal Medicine; Visit Provider Hospitalist
DX: J98.4 Other disorders of lung (principal)
CPT/HCPCS: 71046

== ENCOUNTER → 2024-10-01 09:34 | Outpatient (BNV) | payer MEDICARE, SELFPAY | PROVIDERS: PCP Internal Medicine; Visit Provider Radiology Diagnostic Radiology | DX: J98.4 Other disorders of lung (principal) | CPT/HCPCS: 71046 ==

== ENCOUNTER 2024-10-17 11:04 | Outpatient (REF) | payer MEDICARE, SELFPAY ==
[2024-10-17 13:50] LABS: Anion Gap 10 (12-20); Blood Urea Nitrogen 20 mg/dL (9-16); Carbon Dioxide 26 mmol/L (22-29); Chloride 106 mmol/L (96-108); Estimated Glomerular Filt Rate > 60; Glucose Random 116 mg/dL (60-115); Potassium 4.2 mmol/L (3.3-5.1); Sodium 138 mmol/L (135-145)
== END 2024-10-17 11:05 | disposition home or self-care (01) ==
LOC: HO.HMGCLDS 11:04
PROVIDERS: PCP Internal Medicine; Visit Provider Hospitalist
DX: Z86.711 Personal history of pulmonary embolism (principal); J98.4 Other disorders of lung; R93.89 Abnormal findings on diagnostic imaging of other specified body structures; R06.02 Shortness of breath
CPT/HCPCS: 36415; 80048

== ENCOUNTER 2024-10-23 13:23 | Outpatient (REF) | payer MEDICARE, SELFPAY ==
--- NOTE | ~2024-10-23 | CT_ITS ---
EXAMINATION: CT ANGIOGRAM CHEST CLINICAL INFORMATION: Difficulty breathing COMPARISON: 05/05/2012 TECHNIQUE: Multiple axial images were obtained through the chest after the administration of 65 mL of Omnipaque 350 intravenous contrast. Extensive vascular post-processing including two-dimensional and three-dimensional reformatted images were created and reviewed on an independent workstation. This CT examination was performed using dose optimization techniques as appropriate, variously including the following: *Automated exposure control *Adjustment of mA and/or kV according to patient size (this includes techniques or standardized protocols for targeted exams where dose is matched to indication/reason for exam; i.e. extremities or head) *Use of iterative reconstruction technique DLP: 148 mGy-cm FINDINGS: Technically suboptimal. There appears to be normal contrast enhancement in the great vessels of the mediastinum. In particular, normal enhancement observed in the main and right and left pulmonary artery. The most distal pulmonary arterial structures are not clearly seen. No pericardial effusion. No significant adenopathy. Lungs grossly clear with only minor dependent densities. No suspicious nodules or masses or consolidations. No pneumothorax. No pleural effusion. CHEST: Axial unremarkable. Thoracic inlet unremarkable. 23 mm mass left upper quadrant possibly related to the left kidney. The left kidney is not fully covered on this study. Note that a left renal cyst at this facility was seen back on 05/05/2012. CT/CT angio chest PE protocol IMPRESSION: No evidence for acute PE on today's study. The previously noted pulmonary emboli as noted on 2012 CT chest are not apparent today. VTE(negative) Fleischner guidelines were followed. Electronically signed by: Onesimo Valdes MD 10/24/2024 01:25 PM [facility]
[2024-10-23] MEDS: iohexoL 350 MG/ML 100 ML INFUS..BTL IV (14:54)
== END 2024-10-23 13:24 | disposition home or self-care (01) ==
LOC: HO.CT 13:23
PROVIDERS: Visit Provider Hospitalist
DX: J98.4 Other disorders of lung (principal); R06.02 Shortness of breath; R93.89 Abnormal findings on diagnostic imaging of other specified body structures; Z86.711 Personal history of pulmonary embolism
CPT/HCPCS: 71275; Q9967

== ENCOUNTER 2025-03-26 07:34 | Outpatient (REF) | payer MEDICARE, SELFPAY ==
[2025-03-26 10:25] LABS: Appearance Urine Clear; Color Urine Dark Yellow; Glucose Urine UA Negative (Negative); Leukocyte Esterase Urine Negative (Negative); Nitrite Urine Negative (Negative); Specific Gravity - Urine 1.025 (1.005-1.025); UMIC TRIGGER UA YES; Urine Blood Trace (Negative); Urine Ketones Negative (Negative); Urine Protein Negative (Neg-Trace)
[2025-03-26 10:27] LABS: Hemoglobin 15.4 g/dl (14.0-18.0); Mean Corpuscular HGB Conc 34.2 g/dl (31.0-36.0); Mean Corpuscular Hemoglobin 30.7 pg (27.0-33.0); Mean Corpuscular Volume 89.8 fL (80.0-98.0); Mean Platelet Volume 12.4 fL (9.4-12.4); Platelet Count 122 X10*3/uL (160-400); Red Blood Count 5.01 X10*6/uL (4.60-5.80); Red Cell Distribution Width 12.6 % (11.0-16.0)
[2025-03-26 10:28] LABS: Bacteria Urine None Seen (None Seen); Hyaline Casts Urine 0-2 /LPF (0-2); Squamous Epithelial Cell Urine 0-2 /HPF (0-2); WBC Urine 0-5 /HPF (0-5)
[2025-03-26 10:44] LABS: Estimated Average Glucose 103 mg/dL; Hemoglobin A1C 133.8404 umol/L; Hemoglobin A1c % 5.2 % (<6.0); Total Hemoglobin (HGBA1C) 4022.8934 umol/L
[2025-03-26 11:04] LABS: Alanine Aminotransferase 45 U/L (0-40); Alkaline Phosphatase 55 U/L (39-117); Anion Gap 10 (12-20); Aspartate Amino Transferase 30 U/L (5-37); Bilirubin Direct 0.4 mg/dL (0.0-0.5); Bilirubin Total 1.1 mg/dL (0.0-1.0); Blood Urea Nitrogen 19 mg/dL (9-16); Calcium 8.9 mg/dL (8.4-10.2); Carbon Dioxide 25 mmol/L (22-29); Chloride 109 mmol/L (96-108); Cholesterol 110 mg/dL (<200); Estimated Glomerular Filt Rate > 60; Glucose Random 98 mg/dL (60-115); HDL Cholesterol 42 mg/dL (>40); LDL Cholesterol Calculated 56 mg/dL (<100); Sodium 140 mmol/L (135-145); Thyroid Stimulating Hormone 1.82 uIU/mL (0.32-4.0); Total Protein 6.7 g/dL (6.5-8.0); Triglycerides 64 mg/dL (<150)
[2025-03-30 17:28] LABS: Vitamin D 25-OH, D2 <4 ng/mL; Vitamin D 25-OH, D3 24 ng/mL; Vitamin D 25-OH, Total 24 ng/mL (30-100)
== END 2025-03-26 07:35 | disposition home or self-care (01) ==
LOC: HO.HMGCLDS 07:34
PROVIDERS: PCP Internal Medicine; Visit Provider Internal Medicine
DX: I25.10 Atherosclerotic heart disease of native coronary artery without angina pectoris (principal); R06.02 Shortness of breath; Z13.1 Encounter for screening for diabetes mellitus; Z13.29 Encounter for screening for other suspected endocrine disorder
CPT/HCPCS: 36415; 80048; 80061; 80076; 81001; 82306; 83036; 84443; 85027

== ENCOUNTER 2025-04-02 08:49 | Outpatient (AMB) | payer MEDICARE, SELFPAY ==
--- NOTE | 2025-04-02 08:52 | A.OFFPC_ITS ---
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 Low Pressure Required: No Accompanied by: Self / Same As Patient Allergies lisinopril [Prinivil] Allergy (Unknown, Verified 04/02/25 09:31) itching Tobacco use date assessed: 04/02/25 Fall risk assessment: No Falls in past year Last assessed Fall Risk: 04/02/25 Dental Screening Dental Screen Date: 04/02/25 Did you have a dental visit in the last 12 months?: No Did you have a dental problem in the last 6 months where you did not have access to dental care?: No Was dental information given to patient?: Patient has dentist (patient has dentures) [facility] Medical History (Updated 04/02/25 @ 09:24 by Christian Garcia MD) Abnormal chest x-ray Chronic restrictive lung disease History of pulmonary embolism Factor V Leiden Pulmonary embolism DVT (deep venous thrombosis) Atherosclerotic cardiovascular disease Surgical History History of colonoscopy (~10/12/17) Hx of cholecystectomy Family History Mother No problems noted. Father No problems noted. Social History Housing: House Alcohol intake: current Alcohol intake frequency: holidays/special occasions only Patient Tobacco Use Status: Former Tobacco user service: Yes Current occupational status: retired Cognitive needs: No Hearing needs: No Vision needs: Yes (rx glasses) Questionnaire PHQ-9 Over the last 2 weeks, how often have you been bothered by any of the following problems? 1. Little interest or pleasure in doing things: not at all 2. Feeling down, depressed, or hopeless: not at all 3. Trouble falling or staying asleep, or sleeping too much: not at all 4. Feeling tired or having little energy: not at all 5. Poor appetite or overeating: not at all 6. Feeling bad about yourself - or that you are a failure or have let yourself or your family down: not at all 7. Trouble concentrating on things, such as reading the newspaper or watching television: not at all 8. Moving or speaking so slowly that other people could have noticed. Or the opposite - being so fidgety or restless that you have been moving around a lot more than usual: not at all 9. Thoughts that you would be better off or of hurting yourself in some way: not at all Total score: 0 Depression Screening Interpretation: Negative Depression Screening Done: Yes Source: Developed by Drs. Houston Griffin, Irish Bo, Sae Wolf and colleagues, with an educational jacob from [employer]. Thrive Questionnaire Date Thrive assessed: 04/02/25 I am a: Patient What is your living situation today?: I have a steady place to live Within the past 12 months, did the food you bought not last and you didn't have the money to get more?: Never true Within the past 12 months, did you worry whether your food would run out before you got money to buy more?: Never true Do you have trouble paying for medicines?: No Do you have trouble getting transportation to medical appointments?: No Do you have trouble paying your heating and electricity bill?: No Do you have trouble taking care of your child, family member or friend?: No Do you have trouble with day-to-day activities such as bathing, preparing meals, shopping, managing finances, etc.?: No Are you currently unemployed and looking for a job?: No Are you interested in more education?: No Please select the resources that you would like help with: None Currently or been in a relationship where the following occur: No concerns reported THRIVE Score: 0 AUDIT C Alcohol Use Questionnaire (AUDIT-C) 1. How often do you have a drink containing alcohol?: Monthly or less 2. How many drinks containing alcohol do you have on a typical day when you are drinking?: 1 or 2 3. How often do you have six or more drinks on one occasion?: Never Total Score: 1 BUDDY-7 AMB Questionnaire BUDDY-7 Date BUDDY - 7 assessed: 04/02/25 Feeling nervous, anxious, or on edge: 0 = Not at all Not being able to stop or control worryin = Not at all Worrying too much about different things: 0 = Not at all Trouble relaxin = Not at all Being so restless that it is hard to sit still: 0 = Not at all Becoming easily annoyed or irritable: 0 = Not at all Feeling afraid as if something awful might happen: 0 = Not at all Total BUDDY-7 score (0-4 normal; 5-9 mild; 10-14 moderate; 15-21 severe): 0 Source: Developed by Drs. Houston Griffin, Irish Bo, Sae Wolf and colleagues, with an educational jacob from [employer]. Physical exam (Primary Care) Vital Signs: Last Vital Signs Temp 97.6 F 04/02/25 08:53 Pulse 68 04/02/25 08:53 Resp 14 04/02/25 08:53 BP 149/67 H 04/02/25 08:53 Pulse Ox 98 04/02/25 08:53 Oxygen Delivery Method Room Air 04/02/25 08:53 BMI result Body Mass Index 31.6 Tobacco/Smoking Status: Tobacco use Status Tobacco use date assessed 04/02/25 04/02/25 08:56 Patient Tobacco Use Status Former Tobacco user 04/02/25 08:56 PHQ-9: PHQ-9 Score PHQ-9: Total score 0 04/02/25 08:56 Depression Screening Interpretation: Negative Thrive Assessment: Date of Thrive Assessment Date Thrive assessed 04/02/25 04/02/25 08:56 Currently or been in a relationship where the following occur: No concerns reported Advance Care Planning discussion: Exists, not on file Date of discussion: 04/02/25 Who was present: Patient Forms completed: Health Care Proxy and MOLST Time spent: 1-15 minutes, on File Actual minutes spent: 5 Coding Level of Care Code New Pt Level 4 (63898) Complex EM visit Add On G2211 Diagnoses History of pulmonary embolism Z86.711 DVT (deep venous thrombosis) I82.409 Factor V Leiden D68.51 Additional Codes Vital Signs *Quality* - Advance Care Planning discussion: Exists, not on file ([id number]) Vital Signs *Quality* - Time spent: 1-15 minutes, on File ([id number]) Assessment & Plan Assessment & Plan (1) History of pulmonary embolism: Code(s): Z86.711 - Personal history of pulmonary embolism Category: Medical Plan: Continue coumadin at same dosage. (2) DVT (deep venous thrombosis): Code(s): I82.409 - Acute embolism and thrombosis of unspecified deep veins of unspecified lower extremity Category: Medical Plan: See above. (3) Factor V Leiden: Code(s): D68.51 - Activated protein C resistance Category: Medical Plan: Stable condition Plan History of Present Illness The patient is a 75-year-old male presenting for a follow-up regarding ongoing health management. Last year, the patient experienced mild shortness of breath upon physical exertion. Subsequent cardiac evaluations, including an echocardiogram and a stress test, highlighted mild arterial calcification without other significant cardiovascular issues. Notably, the patient has a history of deep vein thrombosis and pulmonary embolism managed with Coumadin therapy, and he has been self-monitoring his INR levels to maintain them within therapeutic ranges, adjusting doses with dietary factors in mind. He acknowledges occasional INR elevations, which he effectively addresses through dose adjustments. The patient plans a follow-up with Dr. Zhang regarding prior lung health concerns, though past assessments have been normal. He notes a decrease in physical activity due to weight gain and knee issues, with potential surgical intervention considered higher risk due to his clot history. He maintains stable chronic conditions, with his recent blood work indicating only slightly low vitamin D levels, which he is addressing with supplementation. 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 - Engages in minimal exercise; concerned about weight gain over the past years - Manages Warfarin therapy effectively through weekly home INR testing and dietary adjustments - Consumes alcohol occasionally and adjusts medication accordingly - Lacks a living will or healthcare proxy but is aware of the need for such documentation Review of Systems - Cardiovascular: Reports no acute cardiac symptoms; mild exertional dyspnea noted last year - Respiratory: Denies acute respiratory symptoms; past assessments of lung function normal - Musculoskeletal: Reports knee issues potentially requiring surgery - General: Reports slight weight gain and decreased physical activity recently Physical Exam General: Cooperative and healthy appearing Nutritional Appearance: Well nourished Orientation/consciousness: Patient oriented x3 Limitations: No limitations Head: Normal to inspection General: Appearance normal, both eyes and all related structures Neck: Normal visual inspection Chest: Normal palpation of entire chest wall Respiratory: Heart and lungs sound fine. ormal respiratory effort Neurology: Patient oriented x3 Results - Labs: Blood work normal except for slightly low vitamin D level noted in March - Tests: Echocardiogram and stress test were in range. Plan 1. Mild Arterial Calcification - Routine cardiac monitoring and lifestyle modifications are advised - Cardiology follow-up as necessary 2. History Of Deep Vein Thrombosis And Pulmonary Embolism - Continue Coumadin therapy with home INR monitoring - Adjust dosing according to diet and alcohol consumption - Follow-up with assistant broker regarding lung health 3. Low Vitamin D - Continue vitamin D supplementation Discussion Notes I discussed with the patient the overall management of his current health conditions, emphasizing the importance of maintaining therapeutic INR levels. We reviewed his effective strategies for adjusting Warfarin dosage based on dietary intake and occasional alcohol consumption. I informed the patient about the low vitamin D level and validated his current approach of using [id number] supplements to manage it. During our discussion, I highlighted the potential need for a living will and healthcare proxy, providing the necessary documentation for consideration. The patient was reassured by the planned follow-up with Dr. Zhang concerning his lung health, and we shall continue monitoring his cardiovascular status over time, given the mild arterial calcification noted last year. I encouraged patient-led monitoring and lifestyle changes to manage weight and enhance exercise, explaining its benefits on overall health. Patient Instructions - Continue Warfarin therapy, regularly check INR levels at home, and adjust dosage as needed - Use dietary caution and modify medications if consuming alcohol - Continue vitamin D supplement to address low levels - Be aware of signs of potential clotting issues and seek prompt care if they occur - Consider setting up a living will and healthcare proxy - Follow-up with Dr. Zhang regarding lung health concerns - Engage in mild physical activity to manage weight and cardiovascular health - Contact our office if there are changes in health status, concerns, or if medications need refills
[2025-04-02 08:53] VITALS: BP 149/67; PULSE 68; RESP 14; TEMP 36.4; O2SAT 98; BMI 31.6
== END 2025-04-02 09:26 | disposition home or self-care (01) ==
LOC: HO.HMCSH 08:49
PROVIDERS: PCP Internal Medicine; Visit Provider Internal Medicine
DX: I82.409 Acute embolism and thrombosis of unspecified deep veins of unspecified lower extremity (principal); Z86.711 Personal history of pulmonary embolism; D68.51 Activated protein C resistance; Z00.00 Encounter for general adult medical examination without abnormal findings

== ENCOUNTER → 2025-04-02 08:49 | Outpatient (BNVA) | payer MEDICARE, SELFPAY | PROVIDERS: PCP Internal Medicine; Visit Provider Internal Medicine | DX: D68.51 Activated protein C resistance (principal); Z86.711 Personal history of pulmonary embolism | CPT/HCPCS: 99202 ==

== ENCOUNTER 2025-04-03 10:47 | Outpatient (AMB) | payer MEDICARE, SELFPAY ==
--- NOTE | 2025-04-03 10:52 | A.OFFVIS_ITS ---
Vital Signs 04/03/25 10:53 Height 5 ft 9 in Weight 212 lb 11.937 oz BMI 31.4 BP 128/76 Blood Pressure Location Lt brachial Position Sitting Pulse 86 Pulse Source Pulse Oximeter Pulse Oximetry (%) 96 Oxygen Delivery Method Room Air Intake Visit Reasons: Shortness of breath High Value Associate Required: No Accompanied by: Self / Same As Patient Allergies lisinopril [Prinivil] Allergy (Unknown, Verified 04/03/25 10:55) itching HPI Comments Details: The patient is a 75-year-old gentleman with a known history of pulmonary emboli back more than 12 years ago on chronic anticoagulation presenting with worsening dyspnea symptoms. The patient states that he was chopping wood and started developing significant shortness of breath and was panting. Moderate severity. He went to his primary care who referred him to a licensed pesticide applicator. He did have a cardiac stress test which was completely normal. The patient also had a echocardiogram demonstrating a slightly dilated ascending aorta 4.1 cm along with mild diastolic dysfunction. No clear explanation for the patient's symptoms. Therefore he was referred to Pulmonary. The patient did have a rescue inhaler in the past many years ago but he never used it. Has not been complaining of any coughing wheezing or chest tightness. During the visit we did go for brief walking oximetry we actually went up 4 flights of stairs. Once we reached the 4th flight of stairs he started developing some shortness breath. Heart rate increased about 118. Also to note his oxygen prior to the exercise was 91% we worked on deep breathing exercises and did get better. Otherwise patient is doing well. 09/28/2024 the patient is here for pulmonary follow-up visit. Overall the patient has been doing well. Still having some dyspnea on exertion [id number] severity. Also gets affected by dust specially if he is mowing the lawn. He did undergo pulmonary function studies which was personally by me. The patient does have have a mild restrictive ventilatory defect. No evidence of obstruction and normal diffusing capacity. He will need to have a chest x-ray. If indeed the x-ray is nondiagnostic were request a CT scan to try to assess why he has restrictive lung disease. Otherwise the patient does not need any inhalers at this time. Will follow-up in 6 months. If the patient has any issues she will call for further evaluation. 04/03/2025 the patient is here for pulmonary follow-up visit. Overall his breathing feels better. Feels like he is back to a good baseline. He is minimizing the amount of straining his activity that he was using before that may have been affecting his breathing. Such activities as shopping would he is holding off. And otherwise he is feeling well. He did have PFTs that we looked at before demonstrating restrictive pattern. Therefore he is going to work on weight management to improve his body habitus and hopefully we can improve his expiratory reserve volume and improve his total lung capacity. The patient is going to work on deep breathing exercises. For now he does not need any inhalers. Will plan to repeat his PFTs next year when he comes back. He continues to be on long-term anticoagulation. Of note he does have significant lower extremity edema. He can try some compression stockings he is going to cut down salt. He will follow-up with his licensed pesticide applicator. [facility] Medical History (Updated 04/02/25 @ 09:24 by Christian Garcia MD) Abnormal chest x-ray Chronic restrictive lung disease History of pulmonary embolism Factor V Leiden Pulmonary embolism DVT (deep venous thrombosis) Atherosclerotic cardiovascular disease Surgical History History of colonoscopy (~10/12/17) Hx of cholecystectomy Family History Mother No problems noted. Father No problems noted. Social History Housing: House Alcohol intake: current Alcohol intake frequency: holidays/special occasions only Patient Tobacco Use Status: Former Tobacco user service: Yes Current occupational status: retired Cognitive needs: No Hearing needs: No Vision needs: Yes (rx glasses) Review of Systems Const Denies chills, Denies fatigue, Denies fever(s), Denies weight gain and Denies weight loss Eyes Reports no additional complaints ENT Denies dizziness Card Denies chest pain, Denies leg edema, Denies lightheadedness, Denies palpitations, Denies dyspnea on exertion, Denies orthopnea and Denies other Resp Denies cough, Denies dyspnea on exertion and Denies wheezing GI Denies hematochezia and Denies change in stool character Musc Denies abnormal gait, Denies muscle weakness, Denies numbness, Denies radiating pain into limb and Denies tingling Skin/Breast Denies rash Neuro Denies abnormal gait, Denies dizziness, Denies numbness and Denies tingling Endo Denies fatigue and Denies palpitations Shen/Lymph Denies easy bleeding and Denies lymphadenopathy Aller/Immun Denies wheezing Physical Exam Vital Signs: Last Vital Signs Pulse 86 04/03/25 10:53 BP 128/76 04/03/25 10:53 Pulse Ox 96 04/03/25 10:53 Oxygen Delivery Method Room Air 04/03/25 10:53 BMI result Body Mass Index 31.4 Const General: comfortable Orientation/consciousness: patient oriented x3 HEENT Other: Unremarkable Head: Yes normal to inspection Neck Neck: Yes normal visual inspection Chest Chest palpation & inspection: normal inspection of the chest Resp Effort & Inspection: normal respiratory effort Auscultation: clear to auscultation bilaterally Cardio Heart sounds: S1 normal heart sound present, S2 normal heart sound present and no murmurs GI Palpation (GI): Soft to palpation Back/Spine/Pelvis Other: unremarkable Skin General skin exam: no rashes or lesions noted Neuro General: patient oriented x3 Extrem General: Yes normal to inspection Psych Mental Status: mental status grossly normal Assessment & Plan Assessment & Plan (1) Shortness of breath: Code(s): R06.02 - Shortness of breath Category: Medical (2) History of pulmonary embolism: Code(s): Z86.711 - Personal history of pulmonary embolism Category: Medical (3) Chronic restrictive lung disease: Code(s): J98.4 - Other disorders of lung Category: Medical Plan continue life long anticoagulation PFTs next vist F/U 12 months Orders: Orders PFT pulmonary function test 11 Months J98.4 - Other disorders of lung Coding Level of Care Code Est Pt Level 4 (44526) Diagnoses Shortness of breath R06.02 History of pulmonary embolism Z86.711 Chronic restrictive lung disease J98.4 Time Spent (min) 16
[2025-04-03 10:53] VITALS: BP 128/76; PULSE 86; O2SAT 96; BMI 31.4
== END 2025-04-03 14:08 | disposition home or self-care (01) ==
LOC: HO.HPS 10:48
PROVIDERS: PCP Internal Medicine; Visit Provider Hospitalist
DX: R06.02 Shortness of breath (principal); Z86.711 Personal history of pulmonary embolism; J98.4 Other disorders of lung
CPT/HCPCS: 99214

== ENCOUNTER → 2025-04-03 10:47 | Outpatient (BNVA) | payer MEDICARE, SELFPAY | PROVIDERS: PCP Internal Medicine; Visit Provider Hospitalist | DX: J98.4 Other disorders of lung (principal); R06.02 Shortness of breath; Z86.711 Personal history of pulmonary embolism | CPT/HCPCS: 99212 ==

== ENCOUNTER 2025-09-23 10:05 | Outpatient (AMB) | payer MEDICARE, SELFPAY ==
[2025-09-23 10:10] VITALS: BP 130/60; PULSE 68; RESP 16; TEMP 36.6; O2SAT 98; BMI 31.3
--- NOTE | 2025-09-23 10:10 | A.OFFPC_ITS ---
Vital Signs 09/23/25 10:10 Height 5 ft 9 in Weight 212 lb BMI 31.3 BP 130/60 Blood Pressure Location Rt brachial Position Sitting Respiration 16 Pulse 68 Pulse Source Pulse Oximeter Temp 97.8 F Temp Source Temporal Artery Scan Pulse Oximetry (%) 98 Oxygen Delivery Method Room Air Intake Visit Reasons: Follow Up Chemical Research Technician Required: No Accompanied by: Self / Same As Patient Allergies lisinopril (Prinivil) Allergy (Unknown, Verified 09/23/25 10:43) itching Medication List - Last Reconciled 09/23/25 by Christian Garcia MD atorvastatin 20 mg PO BEDTIME cholecalciferol (vitamin D3) 50 mcg PO DAILY losartan 50 mg PO DAILY warfarin 7.5 mg PO DAILY Tobacco use date assessed: 04/02/25 Dental Screening Dental Screen Date: 04/02/25 [facility] Medical History Abnormal chest x-ray Chronic restrictive lung disease History of pulmonary embolism Factor V Leiden Pulmonary embolism DVT (deep venous thrombosis) Atherosclerotic cardiovascular disease Surgical History History of colonoscopy (~10/12/17) Hx of cholecystectomy Family History Mother No problems noted. Father No problems noted. Social History Housing: House Alcohol intake: current Alcohol intake frequency: holidays/special occasions only Patient Tobacco Use Status: Former Tobacco user service: Yes Current occupational status: retired Cognitive needs: No Hearing needs: No Vision needs: Yes (rx glasses) Questionnaire PHQ-9 Over the last 2 weeks, how often have you been bothered by any of the following problems? 1. Little interest or pleasure in doing things: not at all 2. Feeling down, depressed, or hopeless: not at all 3. Trouble falling or staying asleep, or sleeping too much: not at all 4. Feeling tired or having little energy: not at all 5. Poor appetite or overeating: not at all 6. Feeling bad about yourself - or that you are a failure or have let yourself or your family down: not at all 7. Trouble concentrating on things, such as reading the newspaper or watching television: not at all 8. Moving or speaking so slowly that other people could have noticed. Or the opposite - being so fidgety or restless that you have been moving around a lot more than usual: not at all 9. Thoughts that you would be better off or of hurting yourself in some way: not at all Total score: 0 Depression Screening Interpretation: Negative Depression Screening Done: Yes Source: Developed by Drs. Houston Griffin, Irish Bo, Sae Wolf and colleagues, with an educational jacob from [employer]. Thrive Questionnaire Date Thrive assessed: 04/02/25 I am a: Patient What is your living situation today?: I have a steady place to live Within the past 12 months, did the food you bought not last and you didn't have the money to get more?: Never true Within the past 12 months, did you worry whether your food would run out before you got money to buy more?: Never true Do you have trouble paying for medicines?: No Do you have trouble getting transportation to medical appointments?: No Do you have trouble paying your heating and electricity bill?: No Do you have trouble taking care of your child, family member or friend?: No Do you have trouble with day-to-day activities such as bathing, preparing meals, shopping, managing finances, etc.?: No Are you currently unemployed and looking for a job?: No Are you interested in more education?: No Please select the resources that you would like help with: None Currently or been in a relationship where the following occur: No concerns reported THRIVE Score: 0 AUDIT C Alcohol Use Questionnaire (AUDIT-C) 1. How often do you have a drink containing alcohol?: Monthly or less 2. How many drinks containing alcohol do you have on a typical day when you are drinking?: 1 or 2 3. How often do you have six or more drinks on one occasion?: Never Total Score: 1 BUDDY-7 AMB Questionnaire BUDDY-7 Date BUDDY - 7 assessed: 04/02/25 Feeling nervous, anxious, or on edge: 0 = Not at all Not being able to stop or control worryin = Not at all Worrying too much about different things: 0 = Not at all Trouble relaxin = Not at all Being so restless that it is hard to sit still: 0 = Not at all Becoming easily annoyed or irritable: 0 = Not at all Feeling afraid as if something awful might happen: 0 = Not at all Total BUDDY-7 score (0-4 normal; 5-9 mild; 10-14 moderate; 15-21 severe): 0 Source: Developed by Drs. Houston Griffin, Irish Bo, Sae Wolf and colleagues, with an educational jacob from [employer]. Physical exam (Primary Care) Vital Signs: Last Vital Signs Temp 97.8 F 09/23/25 10:10 Pulse 68 09/23/25 10:10 Resp 16 09/23/25 10:10 BP 130/60 09/23/25 10:10 Pulse Ox 98 09/23/25 10:10 Oxygen Delivery Method Room Air 09/23/25 10:10 BMI result Body Mass Index 31.3 Tobacco/Smoking Status: Tobacco use Status Tobacco use date assessed 04/02/25 09/23/25 10:11 Patient Tobacco Use Status Former Tobacco user 09/23/25 10:11 PHQ-9: PHQ-9 Score PHQ-9: Total score 0 09/23/25 10:11 Depression Screening Interpretation: Negative Thrive Assessment: Date of Thrive Assessment Date Thrive assessed 04/02/25 09/23/25 10:11 Currently or been in a relationship where the following occur: No concerns reported Const General: cooperative and healthy appearing Nutritional Appearance: well nourished Orientation/consciousness: patient oriented x3 Limitations: no limitations HENMT Head: Yes normal to inspection Eyes General: appearance normal, both eyes and all related structures Neck Neck: Yes normal visual inspection Chest Chest palpation & inspection: normal palpation of entire chest wall Resp Effort & Inspection: normal respiratory effort Neuro General: patient oriented x3 Office Procedures Flu Questionnaire Does the patient have a severe egg allergy?: No Does the patient have severe life threatening allergies?: No Does the patient have a fever or illness today?: No Has the patient ever had Guillain-[place] Syndrome?: No Has the patient ever had any past reaction to a flu shot?: No Immunizations Fluarix [id number] (PF) 45 mcg (15 mcg x 3)/0.5 mL IM syringe Performing Provider: Christian Garcia MD Performing Location: [facility] [place] Adult [facility] Documented (not given) by: GEORGE Montanez on 09/23/25 10:12 Reason Not Given: Received Previously Coding Level of Care Code Est Pt Level 4 (80064) Complex EM visit Add On G2211 Diagnoses Atherosclerotic cardiovascular disease I25.10 Assessment & Plan Assessment & Plan (1) Atherosclerotic cardiovascular disease: Code(s): I25.10 - Atherosclerotic heart disease of [place] coronary artery without angina pectoris Category: Medical Plan: History of Present Illness - The patient is a 75-year-old male presenting for a follow-up visit for chronic condition management. - The patient reports persistent shortness of breath on physical exertion, a condition also present during his last visit in March. - Previous evaluation by Dr. Maldonado included an echocardiogram, stress test, and a breath test, which showed his lungs do not fill to 100% capacity. - Another breath test is scheduled with Dr. Maldonado to monitor for any changes. - The patient is on Coumadin and self-monitors his INR weekly at home, along with his blood pressure. - He is followed by Dr. Harrington for prostate monitoring and has an upcoming appointment on October 11; his PSA levels are reported to fluctuate between 3.5 and 4.2. - The patient reports some knee pain but is managing it without surgical intervention. - His current medications include atorvastatin 20 mg, vitamin D3, losartan, and Coumadin. - He recently received both the influenza and COVID-19 vaccines. - Lab work from March 2023 showed no anemia, normal kidney and liver functions, normal thyroid function, and low vitamin D. Social History - The patient has been retired for 14 years. - He reports being fully functional and able to perform all activities of daily living, including using stairs and managing chores. - He continues to drive, including at night. Review of Systems - General: Denies any new health concerns. - Respiratory: Reports persistent dyspnea on exertion. - Musculoskeletal: Reports mild knee pain. - Pain: Denies any pain other than his knee. - Vision: Reports some glare from lights when driving at night. - Auditory: Denies hearing loss and reports no difficulty with phone conversations. Physical Exam General: Appearance normal, both eyes and all related structures Nutritional Appearance: Well nourished Orientation/consciousness: Patient oriented x3 Limitations: No limitations Head: Normal to inspection Neck: Normal visual inspection Chest: Normal palpation of entire chest wall Respiratory: Lungs not filling up 100%, around 80% Neurology: Patient oriented x3 Results - Labs from March 2023: No anemia; kidney and liver functions were in range; vitamin D was low; thyroid function was normal. - Previous diagnostic tests: Patient reports having had an echocardiogram and a stress test for dyspnea. - Pulmonary Function Test: A prior breath test showed his lungs were filling to approximately 80% capacity. - PSA: Patient reports his PSA levels fluctuate between 3.5 and 4.2. Plan - Continue current medications, including atorvastatin 20 mg, vitamin D3, losartan, and Coumadin. - Continue weekly INR self-monitoring and home blood pressure checks. - Follow up with Dr. Maldonado for a repeat breath test as scheduled. - Keep scheduled appointment with Dr. Alcazar on October 11 for prostate evaluation and PSA monitoring. - Return for a follow-up visit in 6 months. - A blood draw will be performed at the next visit. Discussion Notes I reviewed the patient's ongoing health status, noting his stable condition and lack of new complaints. We discussed his persistent shortness of breath on exertion and the plan to follow up with Dr. Maldonado for a repeat breath test. I acknowledged his proactive health management, including recent flu and COVID- 19 immunizations, weekly INR self-monitoring, and his upcoming urology appoint ment with Dr. Alcaazr for PSA tracking. We reviewed his medications and he confirmed he has an adequate supply until October. I also reviewed his lab work from March, which was largely reassuring. I advised a follow-up visit in six months, at which time we will perform a blood draw. The patient stated he had no further questions. Patient Instructions - Continue taking all your current medications as prescribed, including your statin, vitamin D, losartan, and Coumadin. - Continue checking your INR level every week and checking your blood pressure at home. - Make sure to go to your follow-up appointment with your lung specialist, Dr. Maldonado, for another breath test. - Keep your appointment with Dr. Aclazar on October 11 to have your prostate checked. - Please schedule a follow-up appointment to see me in my office in about 6 months. - We will perform updated blood tests at your next visit. Orders: Orders Influenza [id number] Immunization Today Z23 - Encounter for immunization
--- OUTSIDE RECORDS SUMMARY | 2025-09-23 20:57 | XMS_ITS | Clinical Summary ---
Author Organization [facility] Address [address] [place] [id number] Phone Care Team Providers Care Ground Source Heat Pump Technician Name Role Phone DylonHouston navas Primary Care Provider Allergies No known active allergies Medications atorvastatin (LIPITOR) 80 MG tablet Active warfarin (COUMADIN) 4 MG tablet Active cholecalciferol (VITAMIN D3) 1,000 unit tablet Take 1,000 Units by mouth daily. Active Active Problems No known active problems Social History Tobacco Use Types Packs/Day Years Used Date Smoking Tobacco: Former Cigarettes Q uit: 12/21/1981 Smokeless Tobacco: Never Education Answer Date Recorded Are you interested in more education? Not on cade e 03/04/2023 Are you concerned about learning? Not on file 03/04/2023 No 03/04/2023 No 03/04/2023 Digital Access Answer Date Recorded No 04/02/2023 No 04/02/2023 Reliable internet access at home? Not on file 04/02/2023 Device with a working camera? Not on file Sex and Gender Information Value Date Recorded Sex Assigned at Not on file Legal Sex Male 10:37 PM EDT Gender Identity Not on file Sexual Orientation Not on file Last Filed Vital Signs Vital Sign Reading Time Taken Comments Blood Pressure 166/83 04/04/2015 11:20 AM EDT Pulse 68 04/04/2015 11:20 AM EDT Temperature - - Respiratory Rate - - Oxygen Saturation - - Inhaled Oxygen Concentration - - Weight 90.7 kg (200 lb) 04/04/2015 11:20 AM EDT Height 172.7 cm (5' 8 ) 04/04/2015 11:20 AM EDT Body Mass Index 30.41 04/04/2015 11:20 AM EDT Plan of Treatment Health Maintenance Due Date Last Done Comments Adult Td,Tdap Booster 1949 LIPID PANEL 1949 DEPRESSION SCREENING 1961 SMOKING Hx and SMOKELESS TOBACCO SCREENING 1962 HEPATITIS C SCREENING 1967 ZOSTER VACCINES (1 of 2) 1999 RSV VACCINE (1 - 1-dose 75+ series) 02/21/2024 INFLUENZA VACCINE (#1) 2025 , 09/03/2020, 09/04/2019, Additional history exists COVID-19 VACCINE ( season) 2025 08/20/2021 PNEUMOCOCCAL VACCINES (50+ years) Completed 02/08/2019, 01/31/2018, 05/06/2012 HEPATITIS A VACCINES Aged Out No long er eligible based on patient's age to complete this topic HIB VACCINES Aged Out No longer eligi ble based on patient's age to complete this topic IPV VACCINES Aged Out No longer eligi ble based on patient's age to complete this topic MENINGOCOCCAL VACCINES (ACWY) Aged Out No longer eligible based on patient's age to complete this topic MENINGOCOCCAL VACCINES (B) Aged Out N o longer eligible based on patient's age to complete this topic Medical Devices Not on file Insurance MEDICARE PART A & B MEDICARE PART A & B MEDICARE PART A & B MEDICARE PART A & B MEDICARE PART A & B [place] A & [place] [id number] MEDICARE PART A & B MEDICARE PART A & B MEDICARE PART A & B Care Teams Ground Source Heat Pump Technician Relationship Specialty Start Date End Date Houston Osborne DO [address] [place] [id number] PCP - General 11/10/17 Additional Source Comments The information contained in this document represents components of the legal health record. It is not the complete legal health record.[facility]
--- OUTSIDE RECORDS SUMMARY | 2025-09-23 20:57 | XMS_ITS | Encounter Summary ---
Author Organization [facility] Address [address] [place] [phone] Phone Care Team Providers Care Optometrist Name Role Phone Houston Osborne DO Primary Care Provider [phone] Encounter Details Date Type Department Care Team (Late st Contact Info) Description 12/19/2017 Ancillary Orders [address] [address] Teo Snyder MD [address] [place] [id number] [email or web address] Right knee pain, unspecified chronicity Social History Tobacco Use Types Packs/Day Years Used Date Smoking Tobacco: Never Assessed Sex and Gender Information Value Date Recorded Sex Assigned at Not on file Legal Sex Male 10:37 PM EDT Gender Identity Not on file Sexual Orientation Not on file documented as of this encounter Plan of Treatment Not on file documented as of this encounter Results * XR KNEE 4 OR MORE VIEWS (RIGHT) (12/21/2017 2:02 PM EST) Narrative Samanta Blackburn - 12/21/2017 2:02 PM EST This image report has been auto-finalized and has not been read by a Radiologist. Interpretation has been included in the provider encounter note for this date of service. us Teo Snyder MD IMG XR LOWER EXTREMITY Fi nal Result documented in this encounter Visit Diagnoses Diagnosis Right knee pain, unspecified chronicity Right knee pain, unspecified chronicity documented in this encounter Care Teams Optometrist Relationship Specialty Start Date End Date Houston Osborne DO [address] [place] [id number] PCP - General 11/10/17 documented as of this encounter Additional Source Comments The information contained in this document represents components of the legal health record. It is not the complete legal health record.[facility]
--- OUTSIDE RECORDS SUMMARY | 2025-09-23 20:57 | XMS_ITS | Encounter Summary ---
Author Organization [facility] Address [address] [place] [phone] Phone Care Team Providers Care Supervisor Inspection Department Name Role Phone Houston Osborne DO Primary Care Provider [phone] Encounter Details Date Type Department Care Team (Late st Contact Info) Description 12/19/2017 Ancillary Orders [facility] [address] [place] [phone] Teo Snyder MD [address] [place] [phone] [email or web address] Social History Tobacco Use Types Packs/Day Years Used Date Smoking Tobacco: Never Assessed Sex and Gender Information Value Date Recorded Sex Assigned at Not on file Legal Sex Male 10:37 PM EDT Gender Identity Not on file Sexual Orientation Not on file documented as of this encounter Plan of Treatment Not on file documented as of this encounter Visit Diagnoses Not on filedocumented in this encounter Care Teams Supervisor Inspection Department Relationship Specialty Start Date End Date Houston Osborne DO [address] [place] [phone] PCP - General 11/10/17 documented as of this encounter Additional Source Comments The information contained in this document represents components of the legal health record. It is not the complete legal health record.[facility]
== END 2025-09-23 10:44 | disposition home or self-care (01) ==
LOC: HO.HMCSH 10:05
PROVIDERS: PCP Internal Medicine; Visit Provider Internal Medicine
DX: I25.10 Atherosclerotic heart disease of native coronary artery without angina pectoris (principal); Z23 Encounter for immunization

== ENCOUNTER → 2025-09-23 10:05 | Outpatient (BNVA) | payer MEDICARE, SELFPAY | PROVIDERS: PCP Internal Medicine; Visit Provider Internal Medicine | DX: I25.10 Atherosclerotic heart disease of native coronary artery without angina pectoris (principal) | CPT/HCPCS: 90471; 99212 ==